=== PATIENT | male | born 1975 | race Caucasian/White ===

== ENCOUNTER 2019-12-29 19:33 | Emergency (ER) | payer OTHER ==
[~2019-12-29] VITALS: Ht 167.6 cm; Wt 68.0 kg
--- NOTE | ~2019-12-29 | PROC ---
[facility] [address] [place] [address] PROCEDURE REPORT Name: MICAELA ANDRADE Room: [facility] Hamm#: [id number] Admission: 12/29/19 Attend Phys: Discharge: 12/29/19 Date of : 75 Report #: [id number] THIS REPORT FOR: //name// cc: FAM - No family physician/PCP FAM - No family physician/PCP ~ THIS REPORT FOR: //name// For GI report, please see the Provation report in [employer] content. By: [id number] Records Staff SHAVON /GILBERTO
[2019-12-29 20:17] LABS: HEMATOCRIT 43.6 % (42.0-52.0); MCH 31.4 pg (26.0-34.0); MCHC 34.3 g/dL (28.0-37.0); MCV 91.5 fL (80.0-100.0); MPV 7.2 fl. (7.2-11.1); RBC 4.77 mil/uL (4.50-6.00); RDW-CV 13.7 % (10.5-14.5); WBC 10.2 thou/uL (4.0-11.0)
[2019-12-29 20:27] LABS: CALCIUM 9.5 mg/dL (8.5-10.1); CREATININE 1.2 mg/dL (0.6-1.3); POTASSIUM 3.8 mmol/L (3.5-5.1)
[2019-12-29 23:30] VITALS: BP 118/68
== END 2019-12-29 23:30 | disposition still patient (30) ==
LOC: M.ERS 19:33
PROVIDERS: Personal Emergency Response Attendant
DX: T17.228A Food in pharynx causing other injury, initial encounter (principal); Z20.828 Contact with and (suspected) exposure to other viral communicable diseases; X58.XXXA Exposure to other specified factors, initial encounter; Y93.89 Activity, other specified; Y92.89 Other specified places as the place of occurrence of the external cause; Y99.8 Other external cause status